=== PATIENT | female | born 1995 | race Caucasian/White ===

== ENCOUNTER → 2023-02-04 | Outpatient (REF) | payer BC | LOC: M LAB REF 18:19 | PROVIDERS: ATTEND Physician Assistant | DX: B34.9 Viral infection, unspecified (principal) ==

== ENCOUNTER 2023-03-16 22:58 | Emergency (ER) | payer BC ==
[~2023-03-16] VITALS: Ht 165.1 cm; Wt 86.4 kg
[2023-03-16 23:02] VITALS: BP 155/90; TEMP 100.5; O2SAT 98
== END 2023-03-17 00:05 | disposition left against medical advice (07) ==
LOC: M ED 22:58
DX: Z53.21 Procedure and treatment not carried out due to patient leaving prior to being seen by health care provider (principal)

== ENCOUNTER 2023-04-24 02:53 | Emergency (ER) | payer BC ==
[~2023-04-24] VITALS: Ht 165.1 cm; Wt 89.7 kg
[2023-04-24 02:55] VITALS: BP 137/90; TEMP 98.6; O2SAT 96
[2023-04-24 03:27] LABS: BASO % 0.3 % (0.0-1.0); EOS # 0.1 10^3/uL (0.0-0.5); EOS % 0.5 % (0.0-3.0); HEMATOCRIT 47.4 % (36.0-47.0); HEMOGLOBIN 16.5 g/dl (12.0-15.5); LYMPH # 0.7 10^3/uL (1.5-5.0); LYMPH % 4.9 % (24.0-44.0); MEAN CORPUSCULAR HEMOGLOBIN 29.6 pg (27.0-33.0); MEAN CORPUSCULAR HGB CONC 34.8 g/dl (32.0-36.5); MEAN CORPUSCULAR VOLUME 85.1 fl (80.0-96.0); MONO % 6.5 % (2.0-8.0); NEUTROPHILS # 13.1 10^3/uL (1.5-8.5); NEUTROPHILS % 87.4 % (36.0-66.0); PLATELET COUNT, AUTOMATED 269 10^3/uL (150-450); RED BLOOD COUNT 5.57 10^6/uL (4.00-5.40)
[2023-04-24 03:51] LABS: LIPASE 29 U/L (12-53)
[2023-04-24 03:54] LABS: ALBUMIN 3.8 G/DL (3.2-5.2); ALKALINE PHOSPHATASE 49 U/L (46-116); ALT/SGPT 16 U/L (7.0-40); AST/SGOT 11 U/L (<34); BILIRUBIN,DIRECT 0.2 MG/DL (<0.4); BILIRUBIN,TOTAL 0.6 MG/DL (0.3-1.2); BLOOD UREA NITROGEN 20 MG/DL (9-23); CALCIUM LEVEL 8.6 MG/DL (8.5-10.1); CARBON DIOXIDE LEVEL 18 MMOL/L (20-31); CHLORIDE LEVEL 108 MMOL/L (98-107); CREATININE FOR GFR 0.59 MG/DL (0.55-1.30); GLOMERULAR FILTRATION RATE > 60.0 (>60); GLUCOSE, FASTING 136 MG/DL (60-100); SODIUM LEVEL 138 MMOL/L (136-145); TOTAL PROTEIN 6.8 G/DL (5.7-8.2)
[2023-04-24 04:20] LABS: HCG, SERUM QUALITATIVE NEGATIVE (NEGATIVE)
== END 2023-04-24 05:10 | disposition left against medical advice (07) ==
LOC: M ED 02:53
DX: Z53.21 Procedure and treatment not carried out due to patient leaving prior to being seen by health care provider (principal)

== ENCOUNTER → 2024-05-30 | Outpatient (CLI) | payer BC | LOC: M PLALAB 14:14 | PROVIDERS: ATTEND Nurse Practitioner Family | DX: Z34.80 Encounter for supervision of other normal pregnancy, unspecified trimester (principal) ==

== ENCOUNTER → 2024-07-10 | Outpatient (CLI) | payer BC | LOC: M RAD 07:56 | PROVIDERS: ATTEND Nurse Practitioner Family | DX: Z34.82 Encounter for supervision of other normal pregnancy, second trimester (principal); Z3A.18 18 weeks gestation of pregnancy ==